=== PATIENT | male | born 1980 | race Caucasian/White ===

== ENCOUNTER 2022-10-11 20:56 | Emergency (ER) | payer BC, SELFPAY ==
--- NOTE | ~2022-10-11 | CT_ITS ---
EXAMINATION: CT SOFT TISSUE NECK WITHOUT CONTRAST CLINICAL INFORMATION: Foreign body sensation COMPARISON: None. TECHNIQUE: Noncontrast helical imaging was performed in the axial plane with generation of coronal and sagittal reformatted images. This CT examination was performed using dose optimization techniques as appropriate, variously including the following: *Automated exposure control. *Adjustment of mA and/or kV according to patient size (this includes techniques or standardized protocols for targeted exams where dose is matched to indication/reason for exam; i.e. extremities or head). *Use of iterative reconstruction technique. DLP: 860 mGy-cm FINDINGS: The fat planes of the skull base and soft tissues of the nasopharynx are unremarkable. The the mastoid air cells are clear. There is mild scattered paranasal sinus mucosal thickening.. The temporomandibular joints are normal. Dental disease with several dental caries and periapical lucencies. The unenhanced aerodigestive tract is unremarkable. No radiopaque foreign bodies identified. The unenhanced thyroid, bilateral parotid, and submandibular glands are normal. No pathologic size criteria or morphologically suspicious cervical chain lymph nodes. The partially visualized lung apices are clear. The osseous structures are intact without suspicious focal lesion. Mild multilevel cervical spondylosis. The imaged portions of the brain parenchyma are unremarkable. There is circumferential wall thickening of the upper thoracic esophagus which may reflect esophagitis. CT/CT soft tissue neck wo IV con IMPRESSION: 1. No soft tissue abnormality in the neck is identified. No radiopaque foreign body. 2. Circumferential wall thickening of the upper thoracic esophagus which may reflect esophagitis.
[2022-10-11 20:59] VITALS: BP 160/100; PULSE 75; O2SAT 100
--- NOTE | 2022-10-11 20:59 | ECG_ITS ---
Test Reason : CHEST TIGHTNESS Blood Pressure : / mmHG Vent. Rate : 070 BPM Atrial Rate : 070 BPM P-R Int : 180 ms QRS Dur : 112 ms QT Int : 398 ms P-R-T Axes : 033 -40 -05 degrees QTc Int : 429 ms Normal sinus rhythm with sinus arrhythmia Left axis deviation Inferior infarct , age undetermined Abnormal ECG No previous ECGs available Referred By: Generic ED Physician Electronically Signed By:VICTORIA CHIU
[2022-10-11 21:11] VITALS: BP 144/86; PULSE 70; RESP 16; TEMP 36.6; O2SAT 98; BMI 34.7
[2022-10-11 21:26] LABS: MANUAL DIFF FLAG NO
--- NOTE | 2022-10-11 21:32 | ED_ITS ---
HPI - General Adult General Chief complaint: General Medical Stated complaint: swallowing issue,HTN Time Seen by Provider: 10/11/22 21:18 Source: patient Mode of arrival: ambulatory Limitations: no limitations History of Present Illness HPI narrative: Patient under increased stress for last 1 week after of his friend with poor sleep drinks alcohol almost every night but not dependent ,while eating dinner noticed golf ball feeling in his throat without any nausea or vomiting also he felt slight chest tightness with increased anxiety no vomiting no nausea patient does have problem eating food with fullness in the mid chest and vomiting afterwards never had an endoscopy done in the past a cardiac history in the Related Data Previous Rx's Medication Instructions Recorded lorazepam 1 mg tablet (Ativan) 1 mg PO BEDTIME PRN sleep #14 tabs 10/12/22 pantoprazole 40 mg tablet,delayed 40 mg PO DAILY #30 tabs 10/12/22 release (Protonix) Allergies Allergy/AdvReac Type Severity Reaction Status Date / Time morphine Allergy Unknown Unknown Verified 10/11/22 21:15 Review of Systems Review of Systems: Yes all other systems are reviewed and are negative [facility] Social History Social History Alcohol intake: current Alcohol intake frequency: 0-2 drinks per day Alcohol type: hard liquor Smoked in Last 30 Days: No Use of substances other than those prescribed or required for medical reasons: No Advance Directives: No Advance Directives Information Provided: No Physical Exam ED Vital Signs: Vital Signs - 24 hr 10/11/22 21:11 10/11/22 22:51 10/11/22 23:19 Temperature 97.8 F 97.7 F 98.2 F Pulse Rate 70 71 66 Respiratory Rate 16 12 15 Blood Pressure 144/86 H 120/75 121/78 Pulse Oximetry 98 97 98 Oxygen Delivery Method Room Air Room Air Room Air BMI result Body Mass Index 34.7 Appearance: Alert. Oriented X3. No acute distress. Anxious Eyes: PERRLA, No Nystagmus ENT: Pharynx normal. Oral Mucosa moist Neck: Normal inspection. Neck supple. CVS: Normal heart rate and rhythm. Pulses normal. Respiratory: No respiratory distress. Equal air entry bilateral, no wheezing/rales/rhonchi Abdomen: Soft and nontender. Bowel sounds are present, no mass palpable, no CVA tenderness Skin: Skin warm and dry. Normal skin color. Normal skin turgor. Extremities: No lower extremity edema. No calf tenderness Neuro: Oriented X 3. No motor deficit. No sensory deficit.No cerebellar signs , cranial nerves II-XII intact Medical Decision Making Medical Decision Making [facility] Narrative: Patient is stable labs, CT scan of the neck also negative for any food/foreign body impaction patient speaking full sentences admits that he is stressed and anxious and able to sleep discharge patient home on Protonix and Ativan advised to follow with nursing consultant for possible achalasia Differential Diagnosis Differential Diagnoses: The differential diagnosis associated with the presentation includes Anxiety/foreign body impaction/a chalazia/gastritis Lab Data [facility] Lab Attestation statement: I reviewed the patient's lab results. 10/11/22 21:21 10/11/22 21:21 Labs: Lab Results 10/11/22 10/11/22 10/11/22 Range/Units 21:21 21:21 21:21 WBC 8.3 (4.8-10.8) X10*3/uL RBC 5.40 (4.60-5.80) X10*6/uL Hgb 16.3 (14.0-18.0) g/dl Hct 45.9 (42.0-52.0) % MCV 85.0 (80.0-98.0) fL MCH 30.2 (27.0-33.0) pg MCHC 35.5 (31.0-36.0) g/dl RDW 11.9 (11.0-16.0) % Plt Count 246 (160-400) X10*3/uL MPV 9.7 (9.4-12.4) fL Immature Gran % (Auto) 0.1 (0.0-0.4) % Neut % (Auto) 49.6 (45-73) % Lymph % (Auto) 38.8 (20-40) % [facility] % (Auto) 7.2 (2-11) % Eos % (Auto) 3.9 (0-4) % Baso % (Auto) 0.4 (0-2) % Lymph # (Auto) 3.2 (1.2-4.9) X10*3/uL [facility] # (Auto) 0.6 (0.1-1.2) X10*3/uL Eos # (Auto) 0.3 (0.0-0.4) X10*3/uL Baso # (Auto) 0.0 (0.0-0.2) X10*3/uL Abs Immat Gran (auto) 0.01 (0.00-0.03) X10*3/uL Absolute Neuts (auto) 4.1 (2.0-8.3) x10*3/uL Absolute Nucleated RBC 0.000 (0.0-0.012) X10*3/uL Nucleated RBC % (auto) 0.0 (0.0-0.2) /100WBC Sodium 143 (135-145) mmol/L Potassium 3.4 (3.3-5.1) mmol/L Chloride 106 (96-108) mmol/L Carbon Dioxide 25 (22-29) mmol/L Anion Gap 15 (12-20) BUN 10 (9-16) mg/dL Creatinine 0.78 (0.5-1.4) mg/dL Estim Creat Clear Calc 142.4 Estimated GFR > 60 Random Glucose 115 (60-115) mg/dL Calcium 9.5 (8.4-10.2) mg/dL Troponin I High Sens < 2.7 (<3.5-35.0) ng/L Discharge Plan Discharge Clinical Impression: Esophagitis, Anxiety Patient Disposition: Home, Self-Care Instructions: Anxiety (ED), Esophagitis (ED) Additional Instructions: Avoid alcohol/fried food Drink lot of water with food Medication as prescribed for inflammation of your esophagus and follow-up with gastroenterology for endoscopy Medicine for sleep and to relieve anxiety as needed every night Follow with PCP Prescriptions: New lorazepam [Ativan] 1 mg tablet 1 mg PO BEDTIME PRN (Reason: sleep) Qty: 14 0RF pantoprazole [Protonix] 40 mg tablet,delayed release (DR/EC) 40 mg PO DAILY Qty: 30 0RF Referrals: Geni Quan MD [Physician] - 2 weeks
[2022-10-11 21:42] LABS: Anion Gap 15 (12-20); Blood Urea Nitrogen 10 mg/dL (9-16); Calcium 9.5 mg/dL (8.4-10.2); Carbon Dioxide 25 mmol/L (22-29); Chloride 106 mmol/L (96-108); Creatinine Clr Calc Pharmacy 142.4; Estimated Glomerular Filt Rate > 60; Glucose Random 115 mg/dL (60-115); Potassium 3.4 mmol/L (3.3-5.1); Sodium 143 mmol/L (135-145)
[2022-10-11 21:51] LABS: Basophils Percent Auto 0.4 % (0-2); Eosinophils Absolute Auto 0.3 X10*3/uL (0.0-0.4); Eosinophils Percent Auto 3.9 % (0-4); Hematocrit 45.9 % (42.0-52.0); Hemoglobin 16.3 g/dl (14.0-18.0); Imm Gran Abs Auto 0.01 X10*3/uL (0.00-0.03); Imm Gran Pct Auto 0.1 % (0.0-0.4); Lymphocytes Absolute Auto 3.2 X10*3/uL (1.2-4.9); Lymphocytes Percent Auto 38.8 % (20-40); Mean Corpuscular HGB Conc 35.5 g/dl (31.0-36.0); Mean Corpuscular Hemoglobin 30.2 pg (27.0-33.0); Mean Platelet Volume 9.7 fL (9.4-12.4); Monocytes Absolute Auto 0.6 X10*3/uL (0.1-1.2); Monocytes Percent Auto 7.2 % (2-11); Neutrophils Absolute Auto 4.1 x10*3/uL (2.0-8.3); Neutrophils Percent Auto 49.6 % (45-73); Platelet Count 246 X10*3/uL (160-400); Red Cell Distribution Width 11.9 % (11.0-16.0); Troponin-I High Sensitivity < 2.7 ng/L (<3.5-35.0); White Blood Count 8.3 X10*3/uL (4.8-10.8)
--- OUTSIDE RECORDS SUMMARY | 2022-10-11 22:13 | XMS_ITS | Continuity of Care Document ---
Author Name Unknown Organization [facility] Issa Mann lt Address [address] [place] [address]- Care Team Providers Care Heel Builder Machine Name Role Phone Mathew RODRIGUEZ, Citlaly Tatum Primary Care Physician [phone] [place] [facility] [place] 05[place]30/21 [facility] Adult [address] [place] [address]- Encounter Diagnosis Hypertension(Discharge Diagnosis) - 05/23/21 Attending Physician: Tracie Arora Allergies, Adverse Reactions, Alerts Substance Reaction Severity Status Morphine Sulfate severe nausea Active Immunizations Given and Recorded Vaccine Date Status Refusal Reason tetanus-diphtheria toxoids (Td) 1 12/08/18 Given influenza virus vaccine, inactivated 2 01/30/13 Gi mary Tet/Diphth/Acel, Pertussis (oldterm) 04/09/06 Give n Not Given Vaccine Date Status Refusal Reason Influenza Virus Vaccine (oldterm) 12/08/18 Not Giv en Patient Refuses 1Result Comment: [id number] 2Admin Note: DECLINED Medications albuterol CFC free 90 mcg/inh inhalation aerosol 2, puffs, Inhalation, 4 times a day, PRN, # 75 Gm, Refills 0, Maintenance, 12/08/18 12:11:28 EDT, Aerosol Start Date: 12/08/18 Status: Ordered Flovent Diskus 250 mcg/inh inhalation powder 2 puffs, Inhalation, 2 times a day, # 60 each, 0 Refills, Maintenance, 12/08/18 12:11:12 EDT, Powder Start Date: 12/08/18 Status: Ordered lisinopril 10 mg oral tablet 10 mg, 1, tablet, By Mouth, Daily, # 30 tablet, Refills 0, Tot. Refills 0, Maintenance, 05/23/21 15:24:00 EDT, Route to Pharmacy Electronically, [facility], Partial fill upon patient request if the prescription is for a schedule II opioid drug.,... Start Date: 05/23/21 Status: Ordered Multivitamin Daily, 0 Refills, Maintenance, 09/03/16 3:54:07 Start Date: 09/03/16 Status: Ordered Wellbutrin XL 150 mg/24 hours oral tablet, extended release 1 tablet = 150 mg, By Mouth, Every 24 hours, 0 Refills, Maintenance, 12/08/18 11:35:37 EDT Start Date: 12/08/18 Status: Ordered ZyrTEC 10 mg oral tablet 1 tablet = 10 mg, By Mouth, Daily, 0 Refills, Maintenance, 01/11/17 9:32:30 Start Date: 01/11/17 Status: Ordered Problem List Condition Effective Dates Status Health Status Inform ant Asthma(Confirmed) Active ADHD (attention deficit hype ractivity disorder)(Confirmed) Active Chronic low back pain(Confirmed) Active Chronic pain in left shoulder(Confirmed) Active Hypertension(Confirmed) Active Obese class I(Confirmed) Active Diagnosis Diagnosis Type Effective Dates Health Status Cl inical Service Informant Hypertension Discharge Diagnosis 05/23/21 Vital Signs Most recent to oldest [Reference Range]: 1 2 Height 175.26 cm (05/23/21 3:10 PM) 175.26 cm (05/23/21 2:57 PM) Weight 105 kg (05/23/21 2:57 PM) Oxygen Saturation [94-100 %] 97 % (05/23/21 2:57 PM) Pulse Rate [55-90 bpm] 64 bpm (05/23/21 2:57 PM) Body Mass Index [18.5-24.99] 34.18 *>HHI* (05/23/21 2:57 PM) Blood Pressure [90-138/55-84 mm Hg] 160/ 90mm Hg *H* (05/23/21 3:10 PM) 160/90mm Hg *H* (05/23/21 2:57 PM) Respiratory Rate [16-30 br/min] 16 br/mi n (05/23/21 2:57 PM) Temperature [96.8-100.4 DegF] 97.1 DegF (05/23/21 2:57 PM) Mode of Delivery (Oxygen) Room air (05/23/21 2:57 PM) Blood pressure sites Arm, right (05/23/21 3:10 PM) Arm, right (05/23/21 2:57 PM) Temperature Route Oral (05/23/21 2:57 PM) Weight Obtained Via Standing scale (05/23/21 2:57 PM) Social History Social History Type Response Smoking Status Former smoker entered on: 09/20/16 Sex
--- OUTSIDE RECORDS SUMMARY | 2022-10-11 22:13 | XMS_ITS | Continuity of Care Document ---
Author Name Unknown Organization [facility] Mann lt Address [address] [place] [address]- Care Team Providers Care Slate Picker Name Role Phone Yuli BRANDT, Ace Molina Primary Care Physician Encounter [facility] [place] Date(s): 06/02/19 - 06/09/19 [facility] Adult [address] [place] [address]- [facility] Encounter Diagnosis Infected dental caries(Discharge Diagnosis) - 06/02/19 Attending Physician: Lili RODRIGUEZ, Dinah Allergies, Adverse Reactions, Alerts Substance Reaction Severity Status Morphine Sulfate severe nausea Active Immunizations Given and Recorded Vaccine Date Status Refusal Reason tetanus-diphtheria toxoids (Td) 1 12/08/18 Given influenza virus vaccine, inactivated 2 01/30/13 Gi mary Tet/Diphth/Acel, Pertussis (oldterm) 04/09/06 Give n Not Given Vaccine Date Status Refusal Reason Influenza Virus Vaccine (oldterm) 12/08/18 Not Giv en Patient Refuses 1Result Comment: [id number] 2Admin Note: DECLINED Medications albuterol CFC free 90 mcg/inh inhalation aerosol 2, puffs, Inhalation, 4 times a day, PRN, # 75 Gm, Refills 0, Maintenance, 12/08/18 12:11:28 EDT, Aerosol Start Date: 12/08/18 Status: Ordered amoxicillin-clavulanate 875 mg-125 mg oral tablet 1 tablet, By Mouth, Every 12 hours, for 10 days, # 20 tablet, 0 Refills, Acute 06/12/19 15:56:00 EDT, 06/02/19 15:56:00 EDT, Tablet, [facility], 175.26, cm, 12/08/18 11:32:00 EDT, Height Start Date: 06/02/19 Stop Date: 06/12/19 Status: Ordered Flovent Diskus 250 mcg/inh inhalation powder 2 puffs, Inhalation, 2 times a day, # 60 each, 0 Refills, Maintenance, 12/08/18 12:11:12 EDT, Powder Start Date: 12/08/18 Status: Ordered Multivitamin Daily, 0 Refills, Maintenance, [...] Active Chronic pain in left shoulder(Confirmed) Active Diagnosis Diagnosis Type Effective Dates Health Status Cl inical Service Informant Infected dental caries Discharge Diagnosis 06/02/19 Social History Social History Type Response Smoking Status Former smoker entered on: 09/20/16 Sex
--- OUTSIDE RECORDS SUMMARY | 2022-10-11 22:13 | XMS_ITS | Continuity of Care Document ---
Author Name Unknown Organization [facility] Mann lt Address [address] [place] [address]- Care Team Providers Care Lottery Office Manager Name Role Phone Tracie Arora Primary Care Physician [place] [facility] [place] 08/23/21 - 09/22/21 [facility] Adult [address] [place] [address]- Allergies, Adverse Reactions, Alerts Substance Reaction Severity Status Morphine Sulfate severe nausea Active Immunizations Given and Recorded Vaccine Date Status Refusal Reason tetanus-diphtheria toxoids (Td) 1 12/08/18 Given influenza virus vaccine, inactivated 2 01/30/13 Gi mary Tet/Diphth/Acel, Pertussis (oldterm) 04/09/06 Give n Not Given Vaccine Date Status Refusal Reason Influenza Virus Vaccine (oldterm) 12/08/18 Not Giv en Patient Refuses 1Result Comment: [id number] 2Admin Note: DECLINED Medications albuterol CFC free 90 mcg/inh inhalation aerosol 180 mcg, 2, puffs, Inhalation, 4 times a day, PRN, # 8.5 Gm, Refills 3, Tot. Refills 3, Maintenance, 06/07/21 15:23:00 EDT, Inhaler, Route to Pharmacy Electronically, [id number], [facility], 175.26, cm, 06/07/21 14:58:00... Start Date: 06/07/21 Status: Ordered amLODIPine 10 mg oral tablet See Instructions, TAKE 1 TABLET BY MOUTH DAILY, # 30 tablet, 0 Refills, [facility], 175.26, cm, 08/10/21 7:50:00 EDT, Height Start Date: 08/23/21 Status: Ordered Multivitamin Daily, 0 Refills, Maintenance, 09/03/16 3:54:07 Start Date: 09/03/16 Status: Ordered Symbicort 80mcg/4.5mcg Inhaler 2, puffs, Inhalation, 2 times a day, # 3 each, Refills 1, Tot. Refills 1, Maintenance, 06/07/21 15:20:00 EDT, Aerosol, Route to Pharmacy Electronically, [id number], [facility], 175.26, cm, 06/07/21 14:58:00 EDT, Height Start Date: 06/07/21 Status: Ordered Wellbutrin XL 150 mg/24 hours [...] Active Hypertension(Confirmed) Active Obese class I(Confirmed) Active Seasonal allergies(Confirmed) Active Social History Social History Type Response Smoking Status Former smoker entered on: 09/20/16 Sex
--- OUTSIDE RECORDS SUMMARY | 2022-10-11 22:14 | XMS_ITS | Continuity of Care Document ---
Author Name Unknown Organization [facility] Issa Mann lt Address [address] [place] [address]- Care Team Providers Care Prototyper Name Role Phone Tracie Arora Primary Care Physician [place] [facility] [place]25/22 [facility] Adult [address] [place] [address]- Allergies, Adverse Reactions, Alerts Substance Reaction Severity Status Morphine Sulfate severe nausea Active Immunizations Given and Recorded Vaccine Date Status Refusal Reason tetanus-diphtheria toxoids (Td) 1 12/08/18 Given influenza virus vaccine, inactivated 2 01/30/13 Gi mary Tet/Diphth/Acel, Pertussis (oldterm) 04/09/06 Give n Not Given Vaccine Date Status Refusal Reason Influenza Virus Vaccine (oldterm) 12/08/18 Not Giv en Patient Refuses 1Result Comment: [id number] 2Admin Note: DECLINED Medications albuterol CFC free 90 mcg/inh inhalation aerosol 180 mcg, 2, puffs, Inhalation, 4 times a day, PRN, # 8.5 Gm, Refills 3, Tot. Refills 3, Maintenance, 06/07/21 15:23:00 EDT, Inhaler, Route to Pharmacy Electronically, [id number], [facility], 175.26, , 06/07/21 14:58:00... Start Date: 06/07/21 Status: Ordered amLODIPine 10 mg oral tablet 1 tablet = 10 mg, By Mouth, Daily, for 90 days, # 90 tablet, 3 Refills, Physician Stop 12/23/22 8:08:00 EDT, 12/28/21 8:08:00 EDT, [facility], 175.Ruth, cm, 12/28/21 7:52:00 EDT, Height Start Date: 12/28/21 Stop Date: 12/23/22 Status: Ordered atomoxetine 18 mg oral capsule 1 capsule = 18 mg, By Mouth, Daily in AM, # 30 capsule, 0 Refills, Maintenance, 12/28/21 8:11:00 EDT, Capsule, [facility], Partial fill upon patient request if the prescription is for a scheduleII opioid drug., 175.Ruht, cm, 12/28/21 7:52:00 EDT,... Start Date: 12/28/21 Status: Ordered Multivitamin Daily, 0 Refills, Maintenance, 09/03/16 3:54:07 Start Date: 09/03/16 Status: Ordered Symbicort 80mcg/4.5mcg Inhaler 2, puffs, Inhalation, 2 times a day, # 3 each, Refills 1, Tot. Refills 1, Maintenance, 06/07/21 15:20:00 EDT, Aerosol, Route to Pharmacy Electronically, [id number], [facility], 175.Ruth, cm, 06/07/21 14:58:00 EDT, Height Start Date: [...] Date: 01/11/17 Status: Ordered Problem List Condition Confirmation Course Effective Dates Status H ealth Status Informant Asthma Confirmed Active ADHD (attention deficit hyperactivity disorder) Confirmed Active Chronic low back pain Confirmed Active Chronic pain in left shoulder Confirmed Active Hypertension Confirmed Active Obese class I Confirmed Active Seasonal allergies Confirmed Active Social History Social History Type Response Smoking Status Former smoker entered on: 09/20/16 Sex Patient Care team information Care Team Personnel Name: Cleo Byers RN Position: [facility] RN Member Role: Primary Care Nurse Name: Tracie Arora Position: [facility] PCO Associate Professional Member Role: PCP Address: Address: [address] [place] [id number]- Name: Daniela Farah RN Position: [facility] RN Member Role: Primary Care Nurse Name: Damien Chandler RN Position: [facility] Hospital Entry Processor Member Role: Primary Care Nurse Care Team Related Persons Name: SRIKANTH MARY LOU Address: [address] [place] [address] Name: DANIELA DUKE Address: home [address] [place] [address]
--- OUTSIDE RECORDS SUMMARY | 2022-10-11 22:14 | XMS_ITS | Continuity of Care Document ---
Author Name Unknown Organization [facility] Issa Mann lt Address [address] [place] [address]- Care Team Providers Care Chemical Processing Technician Name Role Phone Tracie Arora Primary Care Physician [phone] [place] [facility] [place] 07/10/21 - 08/09/21 [facility] Adult [address] [place] [address]- Allergies, Adverse Reactions, Alerts Substance Reaction Severity Status Morphine Sulfate severe nausea Active Immunizations Given and Recorded Vaccine Date Status Refusal Reason tetanus-diphtheria toxoids (Td) 1 12/08/18 Given influenza virus vaccine, inactivated 2 01/30/13 Gi mary Tet/Diphth/Acel, Pertussis (oldterm) 04/09/06 Give n Not Given Vaccine Date Status Refusal Reason Influenza Virus Vaccine (oldterm) 12/08/18 Not Giv en Patient Refuses 1Result Comment: [id number] 2Admin Note: DECLINED Medications albuterol CFC free 90 mcg/inh inhalation aerosol 180 mcg, 2, puffs, Inhalation, 4 times a day, PRN, # 8.5 Gm, Refills 3, Tot. Refills 3, Maintenance, 06/07/21 15:23:00 EDT, Inhaler, Route to Pharmacy Electronically, [id number], [facility], 175.26, , 06/07/21 14:58:00... Start Date: 06/07/21 Status: Ordered amLODIPine 10 mg oral tablet 10 mg, 1, tablet, By Mouth, Daily, # 30 tablet, Refills 0, Tot. Refills 0, Maintenance, 07/31/21 14:44:00 EDT, Route to Pharmacy Electronically, [facility], Partial fill upon patient request if the prescription is for a schedule II opioid drug.,... Start Date: 07/31/21 Status: Ordered Multivitamin Daily, 0 Refills, Maintenance, 09/03/16 3:54:07 Start Date: 09/03/16 Status: Ordered Symbicort 80mcg/4.5mcg Inhaler 2, puffs, Inhalation, 2 times a day, # 3 each, Refills 1, Tot. Refills 1, Maintenance, 06/07/21 15:20:00 EDT, Aerosol, Route to Pharmacy Electronically, [id number], [facility], 175.26, cm, 06/07/21 14:58:00 EDT, Height [...]
--- OUTSIDE RECORDS SUMMARY | 2022-10-11 22:14 | XMS_ITS | Continuity of Care Document ---
Author Name Unknown Organization [facility] Mann lt Address [address] [place] [address]- Care Team Providers Care Pattern Storage Clerk Name Role Phone Tracie Arora Primary Care Physician [phone] Encounter [facility] [place](s): 07/07/21 - 07/14/21 [facility] Adult [address] [place] [address]- Encounter Diagnosis Hypertension(Discharge Diagnosis) - 07/07/21 Attending Physician: Tracie Arora Referring Physician: Bay BRANDT, Uche Sagastume Allergies, Adverse Reactions, Alerts Substance Reaction Severity Status Morphine Sulfate severe nausea Active Immunizations Given and Recorded Vaccine Date Status Refusal Reason tetanus-diphtheria toxoids (Td) 1 12/08/18 Given influenza virus vaccine, inactivated 2 01/30/13 Gi mary Tet/Diphth/Acel, Pertussis (oldterm) 04/09/06 Give n Not Given Vaccine Date Status Refusal Reason Influenza Virus Vaccine (oldterm) 12/08/18 Not Giv en Patient Refuses 1Result Comment: [id number] 2Admin Note: DECLINED Medications albuterol CFC free 90 mcg/inh inhalation aerosol 180 mcg, 2, puffs, Inhalation, 4 times a day, PRN, # 8.5 Gm, Refills 3, Tot. Refills 3, Maintenance, 06/07/21 15:23:00 EDT, Inhaler, Route to Pharmacy Electronically, [id number], [facility], 175.26, , 06/07/21 14:58:00... Start Date: 06/07/21 Status: Ordered amLODIPine 5 mg oral tablet 5 mg, 1, tablet, By Mouth, Daily, # 30 tablet, Refills 0, Tot. Refills 0, Maintenance, 07/07/21 12:59:00 EDT, Route to Pharmacy Electronically, [facility], Partial fill upon patient request if the prescription is for a schedule II opioid drug., 1... Start Date: 07/07/21 Status: Ordered Multivitamin Daily, 0 Refills, Maintenance, 09/03/16 3:54:07 Start Date: 09/03/16 Status: Ordered Symbicort 80mcg/4.5mcg Inhaler 2, puffs, Inhalation, 2 times a day, # 3 each, Refills 1, Tot. Refills 1, Maintenance, 06/07/21 15:20:00 EDT, Aerosol, Route to Pharmacy Electronically, [id number], [facility], 175.26, cm, 06/07/21 14:58:00 EDT, Height [...] Obese class I(Confirmed) Active Seasonal allergies(Confirmed) Active Diagnosis Diagnosis Type Effective Dates Health Status Cl inical Service Informant Hypertension Discharge Diagnosis 07/07/21 Vital Signs Most recent to oldest [Reference Range]: 1 Height 175.26 cm (07/07/21 12:42 PM) Weight 100.2 kg (07/07/21 12:42 PM) Oxygen Saturation [94-100 %] 99 % (07/07/21 12:42 PM) Pulse Rate [55-90 bpm] 56 bpm (5/13/22 12:42 PM) Body Mass Index [18.5-24.99] 32.62 *>HHI* (07/07/21 12:42 PM) Blood Pressure [90-138/55-84 mm Hg] 147/ 86mm Hg *H* (07/07/21 12:42 PM) Temperature [96.8-100.4 DegF] 98.7 DegF (07/07/21 12:42 PM) Blood pressure sites Arm, right (07/07/21 12:42 PM) Temperature Route Temporal (07/07/21 12:42 PM) Weight Obtained Via Standing scale (07/07/21 12:42 PM) Social History Social History Type Response Smoking Status Former smoker entered on: 09/20/16 Sex
--- OUTSIDE RECORDS SUMMARY | 2022-10-11 22:14 | XMS_ITS | Continuity of Care Document ---
Author Name Unknown Organization [facility] Issa Mann lt Address [address] [place] [address]- Care Team Providers Care Sprayer Machine Name Role Phone Tracie Arora Primary Care Physician [place] [facility] 10[place]11/21 [facility] Adult [address] [place] [address]- Attending Physician: Tracie Arora Allergies, Adverse Reactions, [...] Not Giv en Patient Refuses 1Result Comment: [id number] 2Admin Note: DECLINED Medications albuterol CFC free 90 mcg/inh inhalation aerosol 180 mcg, 2, puffs, Inhalation, 4 times a day, PRN, # 8.5 Gm, Refills 3, Tot. Refills 3, Maintenance, 06/07/21 15:23:00 EDT, Inhaler, Route to Pharmacy Electronically, [id number], [facility], 175.26, cm, 06/07/21 14:58:00... Start Date: 06/07/21 Status: Ordered amLODIPine 10 mg oral tablet See Instructions, TAKE 1 TABLET BY MOUTH DAILY, # 30 tablet, 0 Refills, [facility], 175.26, cm, 08/10/21 7:50:00 EDT, Height Start Date: 08/23/21 Status: Ordered Multivitamin Daily, 0 Refills, Maintenance, 09/03/16 3:54:07 Start Date: 09/03/16 Status: Ordered Symbicort 80mcg/4.5mcg Inhaler 2, puffs, Inhalation, 2 times a day, # 3 each, Refills 1, Tot. Refills 1, Maintenance, 06/07/21 15:20:00 EDT, Aerosol, Route to Pharmacy Electronically, [id number], [facility], 175.26, cm, 06/07/21 14:58:00 EDT, [...]
--- OUTSIDE RECORDS SUMMARY | 2022-10-11 22:14 | XMS_ITS | Continuity of Care Document ---
Author Name Unknown Organization [facility] Issa Mann lt Address [address] [place] [address]- Care Team Providers Care Mine Production Engineer Name Role Phone Tracie Arora Primary Care Physician [place] [facility] [place] 08[place]21 [facility] Adult [address] [place] [address]- Attending Physician: Tracie Arora Allergies, Adverse Reactions, [...] Not Giv en Patient Refuses 1Result Comment: [id number] 2Admin Note: DECLINED Medications albuterol CFC free 90 mcg/inh inhalation aerosol 180 mcg, 2, puffs, Inhalation, 4 times a day, PRN, # 8.5 Gm, Refills 3, Tot. Refills 3, Maintenance, 06/07/21 15:23:00 EDT, Inhaler, Route to Pharmacy Electronically, [id number], [facility], 175.26, cm, 06/07/21 14:58:00... Start Date: [...] 15:20:00 EDT, Aerosol, Route to Pharmacy Electronically, [id number], [facility], 175.26, cm, 06/07/21 14:58:00 EDT, Height [...] Obese class I(Confirmed) Active Seasonal allergies(Confirmed) Active Vital Signs Most recent to oldest [Reference Range]: 1 Height 175.26 cm (08/10/21 7:50 AM) Weight 98.7 kg (08/10/21 7:50 AM) Oxygen Saturation [94-100 %] 99 % (08/10/21 7:50 AM) Pulse Rate [55-90 bpm] 82 bpm (08/10/21 7:50 AM) Body Mass Index [18.5-24.99] 32.13 *>HHI* (08/10/21 7:50 AM) Blood Pressure [90-138/55-84 mm Hg] 139/ 79mm Hg *H* (08/10/21 7:50 AM) Temperature [96.8-100.4 DegF] 97.9 DegF (08/10/21 7:50 AM) Blood pressure sites Arm, right (08/10/21 7:50 AM) Temperature Route Temporal (08/10/21 7:50 AM) Weight Obtained Via Standing scale (08/10/21 7:50 AM) Social History Social History Type Response Smoking Status Former smoker entered on: 09/20/16 Sex
--- OUTSIDE RECORDS SUMMARY | 2022-10-11 22:14 | XMS_ITS | Continuity of Care Document ---
Author Name Unknown Organization [facility] Issa Mann lt Address [address] [place] [address]- Care Team Providers Care Division Road Supervisor Name Role Phone Tracie Arora Primary Care Physician [phone] Encounter [facility] [place] Date(s): 07/31/21 - 08/07/21 [facility] Adult [address] [place] [address]- Encounter Diagnosis Hypertension(Discharge Diagnosis) - 07/31/21 Unilateral paresis(Discharge Diagnosis) - 07/31/21 Seasonal allergies(Discharge Diagnosis) - 07/31/21 Asthma(Discharge Diagnosis) - 07/31/21 Left otitis media(Discharge Diagnosis) - 07/31/21 Attending Physician: Tracie Arora Referring Physician: [place] [...] Not Giv en Patient Refuses 1Result Comment: [id number] 2Admin Note: DECLINED Medications albuterol CFC free 90 mcg/inh inhalation aerosol 180 mcg, 2, puffs, Inhalation, 4 times a day, PRN, # 8.5 Gm, Refills 3, Tot. Refills 3, Maintenance, 06/07/21 15:23:00 EDT, Inhaler, Route to Pharmacy Electronically, [id number], [facility], 175.26, cm, 06/07/21 14:58:00... Start Date: [...] 15:20:00 EDT, Aerosol, Route to Pharmacy Electronically, [id number], [facility], 175.26, cm, 06/07/21 14:58:00 EDT, Height [...] Diagnosis Diagnosis Type Effective Dates Health Status Clinical Service Informant Hypertension Discharge Diagnosis 07/31/21 Unilateral paresis Discharge Diagnosis 07/31/21 Seasonal allergies Discharge Diagnosis 07/31/21 Asthma Discharge Diagnosis 07/31/21 Left otitis media Discharge Diagnosis 07/31/21 Vital Signs Most recent to oldest [Reference Range]: 1 Height 175.26 cm (07/31/21 2:26 PM) Weight 97 kg (07/31/21 2:26 PM) Oxygen Saturation [94-100 %] 99 % (07/31/21 2:26 PM) Pulse Rate [55-90 bpm] 87 bpm (07/31/21 2:26 PM) Body Mass Index [18.5-24.99] 31.58 *>HHI* (07/31/21 2:26 PM) Blood Pressure [90-138/55-84 mm Hg] 150/ 85mm Hg *H* (07/31/21 2:26 PM) Temperature [96.8-100.4 DegF] 98.9 DegF (07/31/21 2:26 PM) Blood pressure sites Arm, right (07/31/21 2:26 PM) Temperature Route Temporal (07/31/21 2:26 PM) Weight Obtained Via Standing scale (07/31/21 2:26 PM) Social History Social History Type Response Smoking Status Former smoker entered on: 09/20/16 Sex
--- OUTSIDE RECORDS SUMMARY | 2022-10-11 22:14 | XMS_ITS | Continuity of Care Document ---
Author Name Unknown Organization [facility] Mann lt Address [address] [place] [address]- Care Team Providers Care Stock Broker Name Role Phone Tracie Arora Primary Care Physician [place] [facility] [place]21 [place] 10/11/21 [facility] Adult [address] [place] [address]- Attending Physician: Admtr, Katerine Admitting Physician: Admtr, Katerine Referring Physician: Admtr, Ar8 Allergies, Adverse Reactions, Alerts Substance Reaction Severity Status Morphine Sulfate severe nausea Active Immunizations Given and Recorded Vaccine Date Status Refusal Reason tetanus-diphtheria toxoids (Td) 1 12/08/18 Given influenza virus vaccine, inactivated 2 01/30/13 Gi mary Tet/Diphth/Acel, Pertussis (oldterm) 04/09/06 Give n Not Given Vaccine Date Status Refusal Reason Influenza Virus Vaccine (oldterm) 12/08/18 Not Giv en Patient Refuses 1Result Comment: [id number] 2Admin Note: DECLINED Medications albuterol CFC free 90 mcg/inh inhalation aerosol 180 mcg, 2, puffs, Inhalation, 4 times a day, PRN, # 8.5 Gm, Refills 3, Tot. Refills 3, Maintenance, 06/07/21 15:23:00 EDT, Inhaler, Route to Pharmacy Electronically, [id number], [facility], 175.26, cm, 06/07/21 14:58:00... Start Date: 06/07/21 Status: Ordered amLODIPine 10 mg oral tablet See Instructions, TAKE 1 TABLET BY MOUTH DAILY, # 30 tablet, 0 Refills, [facility], 175.26, cm, 08/10/21 7:50:00 EDT, Height Start Date: 08/23/21 Status: Ordered Multivitamin Daily, 0 Refills, Maintenance, 09/03/16 3:54:07 Start Date: 09/03/16 Status: Ordered Symbicort 80mcg/4.5mcg Inhaler 2, puffs, Inhalation, 2 times a day, # 3 each, Refills 1, Tot. Refills 1, Maintenance, 06/07/21 15:20:00 EDT, Aerosol, Route to Pharmacy Electronically, [id number], [facility], 175.26, cm, 06/07/21 14:58:00 EDT, Height [...]
--- OUTSIDE RECORDS SUMMARY | 2022-10-11 22:14 | XMS_ITS | Continuity of Care Document ---
Author Name Unknown Organization [facility] Mann lt Address [address] [place] [address]- Care Team Providers Care Clearing Distribution Clerk Name Role Phone Mathew RODRIGUEZ, Citlaly Tatum Primary Care Physician [phone] Encounter [facility] [place] Date(s): 06/23/21 - 06/30/21 [facility] Adult [address] [place] [address]- Encounter Diagnosis Asthma(Discharge Diagnosis) - 06/27/21 Hypertension(Discharge Diagnosis) - 06/27/21 Attending Physician: Tracie Arora Allergies, Adverse Reactions, [...] Not Giv en Patient Refuses 1Result Comment: [id number] 2Admin Note: DECLINED Medications albuterol CFC free 90 mcg/inh inhalation aerosol 180 mcg, 2, puffs, Inhalation, 4 times a day, PRN, # 8.5 Gm, Refills 3, Tot. Refills 3, Maintenance, 06/07/21 15:23:00 EDT, Inhaler, Route to Pharmacy Electronically, [id number], [facility], 175.26, , 06/07/21 14:58:00... Start Date: 06/07/21 Status: Ordered lisinopril 20 mg oral tablet 20 mg, 1, tablet, By Mouth, Daily, # 30 tablet, Refills 0, Tot. Refills 0, Maintenance, 06/23/21 15:25:00 EDT, Route to Pharmacy Electronically, [facility], Partial fill upon patient request if the prescription is for a schedule II opioid drug.,... Start Date: 06/23/21 Status: Ordered Multivitamin Daily, 0 Refills, Maintenance, 09/03/16 3:54:07 Start Date: 09/03/16 Status: Ordered Symbicort 80mcg/4.5mcg Inhaler 2, puffs, Inhalation, 2 times a day, # 3 each, Refills 1, Tot. Refills 1, Maintenance, 06/07/21 15:20:00 EDT, Aerosol, Route to Pharmacy Electronically, [id number], [facility], 175.26, cm, 06/07/21 14:58:00 EDT, Height [...] Dates Health Status Cl inical Service Informant Asthma Discharge Diagnosis 06/27/21 Hypertension Discharge Diagnosis 06/27/21 Vital Signs Most recent to oldest [Reference Range]: 1 2 Height 175.26 cm (06/23/21 3:26 PM) 175.26 cm (06/23/21 3:04 PM) Weight 100.5 kg (06/23/21 3:04 PM) Oxygen Saturation [94-100 %] 99 % (06/23/21 3:04 PM) Pulse Rate [55-90 bpm] 94 bpm *H* (06/23/21 3:04 PM) Body Mass Index [18.5-24.99] 32.72 *>HHI* (06/23/21 3:04 PM) Blood Pressure [90-138/55-84 mm Hg] 146/ 100mm Hg *H* (06/23/21 3:26 PM) 154/102mm Hg *H* (06/23/21 3:04 PM) Temperature [96.8-100.4 DegF] 98.2 DegF (06/23/21 3:04 PM) Blood pressure sites Arm, right (06/23/21 3:04 PM) Temperature Route Oral (06/23/21 3:04 PM) Weight Obtained Via Standing scale (06/23/21 3:04 PM) Social History Social History Type Response Smoking Status Former smoker entered on: 09/20/16 Sex
--- OUTSIDE RECORDS SUMMARY | 2022-10-11 22:14 | XMS_ITS | Continuity of Care Document ---
Author Name Unknown Organization [facility] Mann lt Address [address] [place] [address]- Care Team Providers Care Urban Forester Name Role Phone Yuli BRANDT, Ace Molina Primary Care Physician [phone] [place] [facility] [place]19 - 06/12/19 [facility] Adult [address] [place] [address]- [facility] Attending Physician: Alex Sandhu8 Admitting Physician: AdmKaterine bonilla Referring Physician: AdmtrKaterine Allergies, Adverse Reactions, Alerts Substance Reaction Severity Status Morphine Sulfate severe nausea Active Immunizations Given and Recorded Vaccine Date Status Refusal Reason tetanus-diphtheria toxoids (Td) 1 12/08/18 Given influenza virus vaccine, inactivated 2 01/30/13 Gi mary Tet/Diphth/Acel, Pertussis (oldterm) 04/09/06 Give n Not Given Vaccine Date Status Refusal Reason Influenza Virus Vaccine (oldterm) 12/08/18 Not Giv en Patient Refuses 1Result Comment: [id number] 2Admin Note: DECLINED Medications albuterol CFC free [...] Active Chronic pain in left shoulder(Confirmed) Active Social History Social History Type Response Smoking Status Former smoker entered on: 09/20/16 Sex
--- OUTSIDE RECORDS SUMMARY | 2022-10-11 22:14 | XMS_ITS | Continuity of Care Document ---
Author Name Unknown Organization [facility] Address Unknown Care Team Providers Care Geodetic Survey Director Name Role Phone Tracie Arora Primary Care Physician [phone] [place] [facility] [place] 08/02/21 - 09/02/21 [facility] Attending Physician: Angelita Mars MD, Carmella Referring Physician: Tracie Arora Allergies, Adverse Reactions, Alerts [...] Not Giv en Patient Refuses 1Result Comment: [id number] 2Admin Note: DECLINED Medications albuterol CFC free 90 mcg/inh inhalation aerosol 180 mcg, 2, puffs, Inhalation, 4 times a day, PRN, # 8.5 Gm, Refills 3, Tot. Refills 3, Maintenance, 06/07/21 15:23:00 EDT, Inhaler, Route to Pharmacy Electronically, [id number], [facility], 175.26, cm, 06/07/21 14:58:00... Start [...] 15:20:00 EDT, Aerosol, Route to Pharmacy Electronically, [id number], [facility], 175.26, cm, 06/07/21 14:58:00 EDT, [...]
--- OUTSIDE RECORDS SUMMARY | 2022-10-11 22:14 | XMS_ITS | Continuity of Care Document ---
Author Name Unknown Organization [facility] Issa Mann lt Address [address] [place] [address]- Care Team Providers Care Line Rider Name Role Phone Tracie Arora Primary Care Physician En[place] [facility] [place] Date(s): 12/28/21 - 03/31/22 [facility] Adult [address] [place] [address]- Attending Physician: Tracie Arora Allergies, Adverse Reactions, [...] Not Giv en Patient Refuses 1Result Comment: [id number] 2Admin Note: DECLINED Medications albuterol CFC free 90 mcg/inh inhalation aerosol 180 mcg, 2, puffs, Inhalation, 4 times a day, PRN, # 8.5 Gm, Refills 3, Tot. Refills 3, Maintenance, 06/07/21 15:23:00 EDT, Inhaler, Route to Pharmacy Electronically, [id number], [facility], 175.26, cm, 06/07/21 14:58:00... Start Date: 06/07/21 Status: Ordered amLODIPine 10 mg oral tablet 1 tablet = 10 mg, By Mouth, Daily, for 90 days, # 90 tablet, 3 Refills, Physician Stop 12/23/22 8:08:00 EDT, 12/28/21 8:08:00 EDT, [facility], 175.26, cm, 12/28/21 7:52:00 EDT, Height Start Date: 12/28/21 Stop Date: 12/23/22 Status: Ordered atomoxetine 18 mg oral capsule 1 capsule = 18 mg, By Mouth, Daily in AM, # 30 capsule, 0 Refills, Maintenance, 12/28/21 8:11:00 EDT, Capsule, [facility], Partial fill upon patient request if the prescription is for a scheduleII opioid drug., 175.26, cm, 12/28/21 7:52:00 EDT,... Start Date: 12/28/21 Status: Ordered Multivitamin Daily, 0 Refills, Maintenance, 09/03/16 3:54:07 Start Date: 09/03/16 Status: Ordered Symbicort 80mcg/4.5mcg Inhaler 2, puffs, Inhalation, 2 times a day, # 3 each, Refills 1, Tot. Refills 1, Maintenance, 06/07/21 15:20:00 EDT, Aerosol, Route to Pharmacy Electronically, [id number], [facility], 175.26, cm, 06/07/21 14:58:00 EDT, Height [...] Team Personnel Name: Cleo Byers RN Position: [facility] RN Member Role: Primary Care Nurse Name: Tracie Arora Position: [facility] Associate Professional Member Role: PCP Address: Address: [address] [place] [address]- Name: Sean Farah RN Position: [facility] RN Member Role: Primary Care Nurse Name: Damien Chandler RN Position: [facility] Hospital Division Traffic Superintendent Member Role: Primary Care Nurse Care Team Related Persons Name: MARY LOU DUKE Address: home [address] [place] [address] Name: SEAN DUKE Address: home [address] [place] [address]
--- OUTSIDE RECORDS SUMMARY | 2022-10-11 22:14 | XMS_ITS | Continuity of Care Document ---
Author Name Unknown Organization [facility] Issa Mann lt Address [address] [place] [address]- Care Team Providers Care Fun House Operator Name Role Phone Tracie Arora Primary Care Physician En[place] [facility] [place] Date(s): 12/28/21 - 01/04/22 [facility] Adult [address] [place] [address]- Attending Physician: Tracie Arora Allergies, Adverse Reactions, [...] Not Giv en Patient Refuses 1Result Comment: [id number] 2Admin Note: DECLINED Medications albuterol CFC free 90 mcg/inh inhalation aerosol 180 mcg, 2, puffs, Inhalation, 4 times a day, PRN, # 8.5 Gm, Refills 3, Tot. Refills 3, Maintenance, 06/07/21 15:23:00 EDT, Inhaler, Route to Pharmacy Electronically, [id number], [facility], 175.26, cm, 06/07/21 14:58:00... Start Date: 06/07/21 Status: Ordered amLODIPine 10 mg oral tablet 1 tablet = 10 mg, By Mouth, Daily, for 90 days, # 90 tablet, 3 Refills, Physician Stop 12/23/22 8:08:00 EDT, 12/28/21 8:08:00 EDT, [facility], 175.26, cm, 12/28/21 7:52:00 EDT, Height Start Date: 12/28/21 Stop Date: 12/23/22 Status: Ordered atomoxetine 18 mg oral capsule 1 capsule = 18 mg, By Mouth, Daily in AM, # 30 capsule, 0 Refills, Maintenance, 12/28/21 8:11:00 EDT, Capsule, [facility], Partial fill upon patient request if [...] 15:20:00 EDT, Aerosol, Route to Pharmacy Electronically, [id number], [facility], 175.26, cm, 06/07/21 14:58:00 EDT, Height [...] Condition Confirmation Course Effective Dates Status H ealt Status Informant Asthma Confirmed Active ADHD (attention deficit hyperactivity disorder) Confirmed Active Chronic low back pain Confirmed Active Chronic pain in left shoulder Confirmed Active Hypertension Confirmed Active Obese class I Confirmed Active Seasonal allergies Confirmed Active Vital Signs Most recent to oldest [Reference Range]: 1 Height 175.26 cm (12/28/21 7:52 AM) Weight 100.0 kg (12/28/21 7:52 AM) Oxygen Saturation [94-100 %] 99 % (12/28/21 7:52 AM) Pulse Rate [55-90 bpm] 68 bpm (12/28/21 7:52 AM) Body Mass Index [18.5-24.99 kg/m2] 32.56 kg/m2 *>HHI* (12/28/21 7:52 AM) Blood Pressure [90-138/55-84 mm Hg] 150/ 87mm Hg *H* (12/28/21 7:52 AM) Temperature [96.8-100.4 DegF] 97.8 DegF (12/28/21 7:52 AM) Mode of Delivery (Oxygen) Room air (12/28/21 7:52 AM) Blood pressure sites Arm, right (12/28/21 7:52 AM) Temperature Route Oral (12/28/21 7:52 AM) Weight Obtained Via Standing scale (12/28/21 7:52 AM) Social History Social History Type Response Smoking Status Former smoker entered on: 09/20/16 Sex Patient Care team information Care Team Personnel Name: Cleo Byers RN Position: [facility] RN Member Role: Primary Care Nurse Name: Tracie Arora Position: [facility] Associate Professional Member Role: PCP Address: Address: [address] [place] [address]- Name: Sean Farah RN Position: [facility] RN Member Role: Primary Care Nurse Name: Damien Chandler RN Position: [facility] Hospital Street Light Inspector Member Role: Primary Care Nurse Care Team Related Persons Name: MARY LOU DUKE Address: [address] [place] [address] Name: SEAN DUKE Address: home [address] [place] [address]
--- OUTSIDE RECORDS SUMMARY | 2022-10-11 22:14 | XMS_ITS | Continuity of Care Document ---
Author Name Unknown Organization [facility] Mann lt Address [address] [place] [address]- Care Team Providers Care Loft Worker Head Name Role Phone Mathew RODRIGUEZ, Citlaly Tatum Primary Care Physician [phone] [place] [facility] [place] - 06/14/21 [facility] Adult [address] [place] [address]- Encounter Diagnosis Hypertension(Discharge Diagnosis) - 06/08/21 Asthma(Discharge Diagnosis) - 06/08/21 Seasonal allergies(Discharge Diagnosis) - 06/08/21 Attending Physician: Tracie Arora Allergies, Adverse Reactions, [...] Not Giv en Patient Refuses 1Result Comment: [id number] 2Admin Note: DECLINED Medications albuterol CFC free 90 mcg/inh inhalation aerosol 180 mcg, 2, puffs, Inhalation, 4 times a day, PRN, # 8.5 Gm, Refills 3, Tot. Refills 3, Maintenance, 06/07/21 15:23:00 EDT, Inhaler, Route to Pharmacy Electronically, [id number], [facility], [facility], , 06/07/21 14:58:00... Start Date: 06/07/21 Status: Ordered lisinopril 10 mg oral tablet [...] 09/03/16 3:54:07 Start Date: 09/03/16 Status: Ordered Singulair 10 mg oral tablet 10 mg, 1, tablet, By Mouth, Daily in PM, # 90 tablet, Refills 1, Tot. Refills 1, Maintenance, 06/07/21 15:22:00 EDT, Route to Pharmacy Electronically, [facility], Partial fill upon patient request if the prescription is for a schedule II opioid d... Start Date: 06/07/21 Status: Ordered Symbicort 80mcg/4.5mcg Inhaler 2, puffs, Inhalation, 2 times a day, # 3 each, Refills 1, Tot. Refills 1, Maintenance, 06/07/21 15:20:00 EDT, Aerosol, Route to Pharmacy Electronically, [id number], [facility], 175.26, cm, 06/07/21 14:58:00 EDT, [...] Status Clinical Service Informant Hypertension Discharge Diagnosis 06/08/21 Asthma Discharge Diagnosis 06/08/21 Seasonal allergies Discharge Diagnosis 06/08/21 Vital Signs Most recent to oldest [Reference Range]: 1 Height 175.26 cm (06/07/21 2:58 PM) Weight 101.1 kg (06/07/21 2:58 PM) Oxygen Saturation [94-100 %] 98 % (06/07/21 2:58 PM) Pulse Rate [55-90 bpm] 86 bpm (06/07/21 2:58 PM) Body Mass Index [18.5-24.99] 32.91 *>HHI* (06/07/21 2:58 PM) Blood Pressure [90-138/55-84 mm Hg] 138/ 87mm Hg (06/07/21 2:58 PM) Temperature [96.8-100.4 DegF] 98.2 DegF (06/07/21 2:58 PM) Mode of Delivery (Oxygen) Room air (06/07/21 2:58 PM) Blood pressure sites Arm, right (06/07/21 2:58 PM) Temperature Route Oral (06/07/21 2:58 PM) Weight Obtained Via Standing scale (06/07/21 2:58 PM) Social History Social History Type Response Smoking Status Former smoker entered on: 09/20/16 Sex
--- OUTSIDE RECORDS SUMMARY | 2022-10-11 22:14 | XMS_ITS | Continuity of Care Document ---
Author Name Unknown Organization [facility] Issa Mann lt Address [address] [place] [address]- Care Team Providers Care Can Tester Name Role Phone Tracie Arora Primary Care Physician [phone] Encounter [facility] [place] Date(s): 03/01/22 - 03/31/22 [facility] Adult [address] [place] [address]- Attending Physician: Admtr, Katerine Admitting Physician: AdmtrKaterine Referring Physician: Admtr, Ar8 Allergies, Adverse Reactions, [...] Not Giv en Patient Refuses 1Result Comment: [id number] 2Admin Note: DECLINED Medications albuterol CFC free 90 mcg/inh inhalation aerosol 180 mcg, 2, puffs, Inhalation, 4 times a day, PRN, # 8.5 Gm, Refills 3, Tot. Refills 3, Maintenance, 06/07/21 15:23:00 EDT, Inhaler, Route to Pharmacy Electronically, [id number], [facility], 175.26, , 06/07/21 14:58:00... Start Date: 06/07/21 Status: Ordered amLODIPine 10 mg oral tablet 1 tablet = 10 mg, By Mouth, Daily, for 90 days, # 90 tablet, 3 Refills, Physician Stop 12/23/22 8:08:00 EDT, 12/28/21 8:08:00 EDT, [facility], 175.Ruth, cm, 12/28/21 7:52:00 EDT, Height Start Date: 12/28/21 Stop Date: 12/23/22 Status: Ordered atomoxetine 18 mg oral capsule 1 capsule = 18 mg, By Mouth, Daily in AM, # 30 capsule, 0 Refills, Maintenance, 12/28/21 8:11:00 EDT, Capsule, [facility], Partial fill upon patient request if [...] 15:20:00 EDT, Aerosol, Route to Pharmacy Electronically, [id number], [facility], 175.Ruth, cm, 06/07/21 14:58:00 EDT, Height [...] Status Former smoker entered on: 09/20/16 Sex Note * Event Display: Non BH Lab Results Authored Date: * Event Display: Non BH Lab Results Authored Date: * Event Display: Non BH Lab Results Authored Date: * Event Display: Non BH Radiology Results Authored Date: * Kelly Shaver: PERFORM Event Display: Radiology Results Scanned Authored Date: Patient Care team information Care Team Personnel Name: Cleo Byers RN Position: [facility] RN Member Role: Primary Care Nurse Name: Tracie Arora Position: [facility] Associate Professional Member Role: PCP Address: Address: [address] [place] [address]- Name: Sean Farah RN Position: [facility] RN Member Role: Primary Care Nurse Name: Damien Chandler RN Position: [facility] Deputy Of Counter Intelligence Member Role: Primary Care Nurse Care Team Related Persons Name: MARY LOU DUKE Address: [address] [place] [address] Name: SEAN DUKE Address: [address] [place] [address]
--- OUTSIDE RECORDS SUMMARY | 2022-10-11 22:14 | XMS_ITS | Continuity of Care Document ---
Author Name Unknown Organization [facility] Address Unknown Care Team Providers Care Tool Carrier Name Role Phone Tracie Arora Primary Care Physician [phone] [place] [facility] [place](s): 10/05/21 - 10/12/21 [facility] Attending Physician: Angelita Mars MD, [...] Not Giv en Patient Refuses 1Result Comment: [id number] 2Admin Note: DECLINED Medications albuterol CFC free 90 mcg/inh inhalation aerosol 180 mcg, 2, puffs, Inhalation, 4 times a day, PRN, # 8.5 Gm, Refills 3, Tot. Refills 3, Maintenance, 06/07/21 15:23:00 EDT, Inhaler, Route to Pharmacy Electronically, [id number], [facility], 175.26, cm, 06/07/21 14:58:00... Start [...] 15:20:00 EDT, Aerosol, Route to Pharmacy Electronically, [id number], [facility], 175.26, cm, 06/07/21 14:58:00 EDT, [...]
[2022-10-11 22:51] VITALS: BP 120/75; PULSE 71; RESP 12; TEMP 36.5; O2SAT 97
[2022-10-11 23:19] VITALS: BP 121/78; PULSE 66; RESP 15; TEMP 36.8; O2SAT 98
--- NOTE | 2022-10-11 23:20 | MHC.EDTECH ---
THIS PCT ASSUMED CARE OF PATIENT AT 2300 ,VITALS SIGN TAKEN ,PT IS COMFORTABLE ,WAITING TO GO TO CT - SCAN ,PT AT BEDSIDE .
[2022-10-12] MEDS: LORazepam 1 MG TABLET PO (01:21)
[2022-10-12 01:25] VITALS: BP 133/77; PULSE 68; RESP 17; O2SAT 98
== END 2022-10-12 01:32 | disposition home or self-care (01) ==
PROVIDERS: Emergency Provider Internal Medicine; PCP Physician Assistant
DX: K20.80 Other esophagitis without bleeding (principal); F41.9 Anxiety disorder, unspecified
CPT/HCPCS: 36415; 70490; 80048; 84484; 85025; 93005; 99284